=== PATIENT | male | born 1950 | race Caucasian/White ===

== ENCOUNTER 2017-03-10 08:45 | Day surgery (SDC) | payer OTHER ==
[~2017-03-10] VITALS: Ht 188 cm; Wt 148.9 kg
[~2017-03-10 08:45] MED LIST: ALLO300T2 PO; ASPI325T32 PO; ATEN100T PO; CHOL10002 PO; COLC0.6T52 PO; DABI150C PO; Lactated Ringer's 1,000 ML IV ONE; METH5TAB5 PO; ZOLP5TAB6 PO
[2017-03-10] MEDS ORDERED: Ketamine 10 mg/mL 20 mL Inj ONE (08:46)
[2017-03-10] MEDS ORDERED: Propofol 10,000 mCg/mL 20 mL Inj ONE (08:46)
[2017-03-10] MEDS ORDERED: Glycopyrrolate 0.2 MG/ML 1mL Inj ONE (08:46)
[2017-03-10 09:08] VITALS: BP 153/76; PULSE 50; RESP 14; O2SAT 100
--- NOTE | 2017-03-10 09:40 | PCM.HPANE ---
Patient Data Date of Service: Mar 10, 2017 Surgeon Admitting Provider: Attending Provider:Chema Caballero MD Primary Care Physician:Zahida Shaw Other Provider:Reggie Smiley Anesthesia Reason for Visit Colitis, Duodenal Mass Ht/WT & BMI Height (Feet): 6 Height (Inches): 2 Weight (Kilograms): 148.92 Body Mass Index 42.00 Allergies Coded Allergies: oxycodone (Verified Adverse Reaction, Intermediate, "GI PROBLEMS", 03/09/17 ) Past Anesthesia History Anesthesia History: Denies:: Abnormal Airway, Anesthesia Reactions, Difficult Intubation, Fam Anesthesia Reaction, Fam Malignant Hypertherm, Malignant Hyperthermia Diabetes History Hx Diabetes?: Yes Type of Diabetes: Type II Glycemic Control: Oral Medication (METFORMIN) Current Bedside Blood Glucose: 109 MRSA MRSA: No Medications Blood Thinner: Aspirin, Pradaxa (ATRIAL FIBRILLATION) Last Dose Blood Thinner: Mar 03, 2017 Home Meds Incl Beta Ysabel: Yes (atenolol) Date Beta Ysabel Taken: Mar 09, 2017 Time Beta Ysabel Taken: 0800 Reported Medications Zolpidem 5 Mg [id number] Mg PO HS PRN For Insomnia 02/20/15 Cholecalciferol (Vitamin D3)1,000 Unit Tablet3,000 Unit PO DAILY 10/16/14 Aspirin 325 Mg Tablet.dr325 Mg PO DAILY #1 BOTTLE Ref 0 10/16/14 Allopurinol 300 Mg Vygcvp239 Mg PO BID 11/21/13 Atenolol 100 Mg [id number] Mg PO DAILY 11/21/13 Colchicine (Colcrys)0.6 Mg Tablet1-2 Tab PO DAILY PRN gout prevention 11/21/13 Methimazole 5 Mg Tablet5 Mg PO DAILY 30 Days 11/21/13 Dabigatran Etexilate Mesylate (Pradaxa)150 Mg [id number] Mg PO BID 30 Days 11/21/13 Discontinued Reported Medications Omeprazole Magnesium (Omeprazole)20 Mg Capsule.dr20 Mg PO DAILY 30 Days Ref 0 10/16/14 History History of ENT Problems?: Yes HEENT History: Positive for:: Dysphagia Denies:: Abnormal Airway Difficult Intubation Hearing Problem Denture Type: None Teeth Condition: Tooth Decay Hx of Heart Problems?: Yes Cardiovascular History: Positive for:: Atrial Fibrillation (on Pradaxa ( stopped last )) Hypertension Denies:: AICD Chest Pain Pacemaker Valvular Heart Disease Other Cardiac History: no PA, bradycardia - no syncope Hx of Respiratory Problem?: Yes Respiratory History: Positive for:: Cough Use of C-PAP Machine Denies:: Asthma COPD Hemoptysis Pneumonia Tuberculosis Hx Neurologic Problems?: No Neurological History: Denies:: CVA Hx of GI Problems?: Yes Gastrointestinal History: Positive for:: Gastroesphageal Reflux Other GI Pertinent History: duodenum mass Hx of Problems?: No Hx Musculoskeletal Problems?: No Musculoskeletal History: Positive for:: Rheumatoid Arthritis (on methotrexate 40mg once a week) Denies:: Joint Replacement Psycho Social History: Denies:: Anxiety Hx Depression Hx Surgeries?: Yes (LEFT WRIST REPAIR, DEVIATED SEPTUM REPAIR, LEFT ARM) Hx Any Other Health Problems?: Yes History Blood Transfusions: Positive for:: Accept Blood Products? Denies:: Blood Transfusions Hx Diabetes: YesBedside Blood Glucose: 109 Hx Alcohol Use: Yes (OCCAS)Hx Substance Use: Yes (eat marijuana occasional) Smoking Status: Former Smoker (remote 40 yrs ago) Never Smoker Stop/Bang Treated for Sleep Apnea?: Yes Do You Have a CPAP Machine?: Yes Risk Assessment Category Category 1A: Patient has history of documented sleep apnea, and HAS NOT received any narcotic, sedative or anesthesia administration during this stay. Category 1B: Patient has history of documented sleep apnea, and HAS received any narcotic , sedative or anesthesia administration during this stay Category 2: Patient has SUSPECTED Obstructive Sleep Apnea, and HAS received any narcotic , sedative or anesthesia administration during this stay. Category 3: Patient has SUSPECTED Obstructive Sleep Apnea and HAS NOT received narcotic, sedative or anesthesia administration during this stay. Category 4: Outpatient in Procedural Areas with known sleep apnea or who screen positive for High Risk via the STOP/BANG questionnaire. Exam Exam Vital Signs Vital Signs Date Time Temp Pulse Resp B/P Pulse Ox O2 Delivery O2 Flow Rate FiO2 03/10/17 09:08 50 14 153/76 100 Room Air General Appearance: Alert, Oriented X3, Cooperative, No Acute Distress HEENT/AIRWAY: MP 3, Neck Movement (from), Mouth Opening (3), Other (TMD<3) Lungs: Diminished Heart: Normal S1, Normal S2, No Murmurs/Rubs/Gallops, Other (bradycardia) Meds/Labs/Diagnostics Bedside Blood Glucose: 109 Plan Impression Patient chart reviewed, patient interviewed and anesthestic plan with risks, benefits, and alternatives discussed, and informed consent obtained. NPO per Anesth. Guidelines: Yes ASA Physical Status: ASA3 Severe Disease Anesthetic Plan: TIVA Bene/Risks/Altern/Consents: Yes HP Complete Prior to Induction: Yes Dk Atkinson MD Mar 10, 2017 09:40
[2017-03-10 10:33] VITALS: BP 123/67; PULSE 57; RESP 14; O2SAT 93
[2017-03-10 10:50] VITALS: BP 129/62; PULSE 47; RESP 16; O2SAT 100
--- NOTE | 2017-03-10 10:58 | ENDO ---
[address] [address] ENDOSCOPY PROCEDURE PATIENT: INGE PENA : 1950 MR#: [id number] ADMIT: 03/10/2017 JOB ID: [id number] DATE: 03/10/2017 PROCEDURE: Esophagogastroduodenoscopy. INDICATION: The patient with a history of a submucosal mass in the second portion of the duodenum. Biopsies previously taken were suggestive of this being a lipoma. INSTRUMENT USED: GIF H [address] Dk Atkinson's anesthesia report for details regarding ASA classification, Mallampati score and medications. PROCEDURE DETAILS: After informed consent was obtained, the patient was brought into the GI suite, where he was placed on oxygen via nasal cannula and monitored with continuous pulse oximeter, telemetry and blood pressure monitoring. A time-out was performed. Then, he was placed in the left lateral decubitus position and medications were administered for sedation. A bite block was placed. The standard EGD scope was inserted through the bite block and advanced under direct visualization to the second portion of the duodenum without difficulty. FINDINGS: 1. In the second portion of the duodenum, measured approximately a 1.5 cm submucosal mass. When probed with biopsy forceps, it was soft. Deep well biopsies were obtained, and at the site of the biopsies, we did see glistening yellowish tissue suggestive of fat. The remainder of the EGD examination was otherwise unremarkable. The pylorus was normal. 2. Normal appearing antrum and gastric body. 3. Retroflexed views in the gastric body revealed a normal-appearing cardia and fundus. The GE junction was slightly irregular. Multiple random biopsies were obtained. The GE junction was at approximately 45 cm. 4. Normal appearing esophagus. IMPRESSION: 1. Submucosal lesion in the second portion of duodenum, appearance suggestive of lipoma. 2. Irregular gastroesophageal junction. RECOMMENDATIONS: 1. Await biopsy results. 2. Proceed to colonoscopy. COMPLICATIONS: None. ESTIMATED BLOOD LOSS: Less than 5 mL. PROCEDURE PERFORMED: Colonoscopy. INDICATION: The patient with a history of colitis and colon polyps. Please see above for ASA classification, Mallampati score and medications. INSTRUMENT USED: PCF H 180 AL and H 190 DL. PREPARATION QUALITY: Was fair. PROCEDURE DETAILS: After completion of the EGD examination, the patient was turned and a digital rectal examination was performed, which was unremarkable. The colonoscope was then inserted into the rectum and advanced under direct visualization to the cecum, which was identified by the presence of the ileocecal valve and appendiceal orifice. Once the cecum was reached, colonoscope was withdrawn back to the rectum as the mucosa and lumen were examined. In the rectum, retroflexion was performed. Following retroflexion, remaining air in the rectum was suctioned and procedure was completed. FINDINGS: 1. In the proximal transverse colon, there was an approximately 4 mm sessile polyp that was removed with a cold snare. 2. Just distal to this, there was evidence of a previously placed tattoo. The mucosa proximal to and distal to the polyp was carefully examined and no mucosal abnormalities were noted. 3. The remainder the colon examination was otherwise unremarkable. 4. Retroflexed views in the rectum were unremarkable. IMPRESSION: 1. Transverse colon polyp. 2. Previously placed tattoo in the transverse colon. RECOMMENDATIONS: 1. Await polyp pathology results. 2. Followup in GI clinic in 2-4 weeks. COMPLICATIONS: None. ESTIMATED BLOOD LOSS: Less than 5 mL.
--- NOTE | 2017-03-11 12:03 | PCM.ANEP1 ---
Post Anesthesia PACU Phase 1 Assessment Date of Service: Mar 10, 2017 Anesthetic Administered: TIVA Level of Alertness: Awake, talking PINTO's with Equal Strength: Yes Pain: No Pain Scale Score: 0 Nausea or Vomiting: No CV Function & Hydration Stable: Yes Airway Device: none Oxygen Delivery: Nasal Cannula Lungs: Diminished PACU Phase 2 Assessment Complications: No Follow up Care: N/A Patient Instructions Provided: N/A Dk Atkinson MD Mar 11, 2017 12:03
--- NOTE | 2017-03-14 14:58 | PATH ---
SURGICAL PATHOLOGY Attending Physician:Seth Bragg CASE STATUS: Signed Out PATIENT NAME: INGE PENA PID: [id number] : 1950 DATE COLLECTED:03/10/2017 17:02 SPECIMEN: 1: Duodenum, Biopsy 2: Esophagus, Biopsy 3: Colon, Polyp CLINICAL HISTORY: DUODENUM MASS 1). DUODENUM MASS BIOPSY 2). DISTAL ESOPHAGUS BIOPSY 3). TRANSVERSE COLON POLYP X1 FINAL DIAGNOSIS: 1.DUODENUM, MASS, BIOPSY: DUODENAL MUCOSA WITH NO DIAGNOSTIC ABNORMALITY. See comment. Negative for active inflammation, dysplasia and malignancy. 2.DISTAL ESOPHAGUS, BIOPSY: SQUAMOCOLUMNAR JUNCTIONAL MUCOSA WITH NO DIAGNOSTIC ABNORMALITY. Negative for intestinal metaplasia. Negative for dysplasia and malignancy. 3.TRANSVERSE COLON, POLYP, BIOPSY: TUBULAR ADENOMA. ICD10 D12.3 NOTE: 1. The endoscopic appearance of a duodenal mass is noted (in addition to the presence of duodenal mass noted in 2015). There are no features in these biopsies to explain the endoscopic appearance of a mass. GROSS DESCRIPTION: Received are three formalin-filled containers, each labeled with the patient' s name. 1. Received in formalin, labeled with the patient' s name and "duodenum mass BX", are multiple fragments of alonzo, soft tissue ranging in size from 0.1 x 0.1 x 0.1 cm to 0.2 x 0.1 x 0.1 cm. All fragments are totally submitted in cassette 1A. 2. Received in formalin, labeled with the patient' s name and "distal esophagus", are two fragments of alonzo, soft tissue ranging in size from 0.1 x 0.1 x 0.1 cm to 0.2 x 0.1 x 0.1 cm. All fragments are totally submitted in cassette 2A. 3. Received in formalin, labeled with the patient' s name and "transverse colon polyp", is one fragment of alonzo, soft tissue measuring 0.2 x 0.2 x 0.2 cm. The fragment is totally submitted in cassette 3A. ([id number]) MICRO DESCRIPTION: See diagnosis. ICD-9 CODES: CPT CODES: 1: 35621 2: 57995, 84803 3: 87290 Electronically Signed Out Pita Jones MD [facility], [place] [address] Technical component performed at [facility], [address], [place], [address]
== END 2017-03-10 23:59 | disposition home or self-care (01) ==
LOC: END 08:45
PROVIDERS: ATTEND Internal Medicine Gastroenterology
DX: D12.3 Benign neoplasm of transverse colon (principal); K52.9 Noninfective gastroenteritis and colitis, unspecified; K31.89 Other diseases of stomach and duodenum; K21.9 Gastro-esophageal reflux disease without esophagitis; R13.10 Dysphagia, unspecified; R05 Cough; I48.91 Unspecified atrial fibrillation; I10 Essential (primary) hypertension; E11.9 Type 2 diabetes mellitus without complications; Z79.82 Long term (current) use of aspirin; Z79.899 Other long term (current) drug therapy; Z88.5 Allergy status to narcotic agent; Z87.891 Personal history of nicotine dependence
CPT/HCPCS: 43239; 45385; J2250; J7120